=== PATIENT | male | born 1975 | race Caucasian/White ===

== ENCOUNTER 2019-12-31 09:50 | Emergency (ER) | payer MEDICAID, SELFPAY ==
--- NOTE | ~2019-12-31 | XR_ITS ---
EXAMINATION: XR ankle RT min 3V DATE: 12/31/2019 10:30 INDICATION: Right ankle pain and swelling. TECHNIQUE: 4 views of right ankle were obtained. COMPARISON: None. FINDINGS: Bone alignment is normal. No fracture. Joint spaces are well maintained. There are enthesop hytes at the posterior and plantar aspects of calcaneal tuberosity. IMPRESSION: 1. No fracture. Reviewed, dictated and finalized at location A. IMPRESSION: 1. No fracture.
[2019-12-31 10:00] VITALS: BP 145/103; PULSE 106; RESP 16; TEMP 36.4; O2SAT 97
--- NOTE | 2019-12-31 10:26 | ED.GENADULT ---
HPI - General Adult General Chief complaint: Extremity Problem,Nontraumatic Stated complaint: right ankle pain/no injury Time Seen by Provider: 12/31/19 10:08 Source: patient Mode of arrival: ambulatory Limitations: no limitations History of Present Illness HPI narrative: Patient is a 44-year-old male who presents to emergency department for atraumatic right ankle pain noting sharp stabbing pain of the ankle worse with activity and weightbearing patient denies injury or trauma. Patient denies similar occurrence patient notes that he had recently had lower extremity swelling secondary to amlodipine was taken off of it and advised to re-start his lisinopril which they had switched due to coughing. Patient denies any fever chills radicular symptoms paresthesias and is otherwise in the room in no distress upon arrival. [place] and has not taken anything for his symptoms Related Data Home Medications Medication Instructions Recorded Confirmed albuterol sulfate INHALATION 12/31/19 atorvastatin 12/31/19 hydrochlorothiazide 12/31/19 Allergies Allergy/AdvReac Type Severity Reaction Status Date / Time No Known Allergies Allergy Mild Verified 03/16/12 16:14 Review of Systems Review of Systems: All systems reviewed & are unremarkable except as noted in HPI and below PMFSH Past Medical History Medical History Hypertension Social History Social History (Updated 12/31/19 @ 10:28 by Puneet Grider PA-C) Smoking status: Never smoker Exam Narrative: Exam Narrative: GENERAL: Well-appearing, well-nourished, and in no acute distress. HEAD: Normocephalic, atraumatic. EYES: PERRLA and EOMI. ENT: Nares clear, no rhinorrhea or epistaxis. Mucous membranes moist. CHEST: Clear to auscultation. No respiratory distress. No wheezes rales or rhonchi HEART: Regular rate and rhythm. No murmur heard. Normal peripheral pulses. ABDOMEN: Soft, nontender, nondistended, EXTREMITIES: Tenderness around the right ankle joint with no deformity no erythema no swelling remainder of extremity nontender SKIN: Warm, dry, no rash. NEURO: No focal deficits. Alert and oriented x3. Neurovascularly intact. Strong DP and PT pulses in the right ankle and foot. No calf tenderness. Capillary refill less than 2 seconds PSYCH: Normal mood and affect. Course Course Emergency Course: Patient in the room aware of case findings treatment plan and diagnosis agreeing to follow-up primary care patient with likely gout as the etiology of his symptoms. Patient had improvement with anti-inflammatory and will be managed with anti-inflammatories on an outpatient basis Vital Signs Vital signs: Vital Signs Temperature 97.5 F L 12/31/19 10:00 Pulse Rate 106 H 12/31/19 10:00 Respiratory Rate 16 12/31/19 10:00 Blood Pressure 145/103 H 12/31/19 10:00 Pulse Oximetry 97 12/31/19 10:00 Temperature 97.5 F L 12/31/19 10:00 Pulse Rate 106 H 12/31/19 10:00 Respiratory Rate 16 12/31/19 10:00 Blood Pressure 145/103 H 12/31/19 10:00 Pulse Oximetry 97 12/31/19 10:00 Medical Decision Making MDM Narrative Medical decision making narrative: Patients injury or pain is consistent with musculoskeletal etiology. No signs of neurological or vascular compromise on exam. Compartments and tisues are soft without signs of compartment syndrome. Pain is felt appropriate for further evaluation on an outpatient basis. Patient's findings consistent with gout Vital Signs Vital Signs: Vital Signs Temperature 97.5 F L 12/31/19 10:00 Pulse Rate 106 H 12/31/19 10:00 Respiratory Rate 16 12/31/19 10:00 Blood Pressure 145/103 H 12/31/19 10:00 Pulse Oximetry 97 12/31/19 10:00 Temperature 97.5 F L 12/31/19 10:00 Pulse Rate 106 H 12/31/19 10:00 Respiratory Rate 16 12/31/19 10:00 Blood Pressure 145/103 H 12/31/19 10:00 Pulse Oximetry 97 12/31/19 10:
[2019-12-31] MEDS: KETOROLAC 30 MG/ML VIAL (*BKC) IV PUSH (10:53)
[2019-12-31 11:04] LABS: Basophils Absolute Auto 0.1 K/mm3 (0.0-0.1); Basophils Percent Auto 1.1 % (0.2-1.2); Eosinophils Absolute Auto 0.2 K/mm3 (0-0.3); Eosinophils Percent Auto 2.6 % (0-4.4); Hematocrit 40.8 % (42.0-52.0); Hemoglobin 14.1 g/dL (14.0-18.0); Immature Granulocyte Absolute 0.04 K/mm3 (0.00-0.031); Immature Granulocyte Percent A 0.5 % (0-0.5); Lymphocytes Absolute Auto 2.16 K/mm3 (0.9-3.2); Lymphocytes Percent Auto 29.3 % (18.3-44.2); Mean Corpuscular HGB Conc 34.6 g/dl (32-36); Mean Corpuscular Hemoglobin 29.7 pg (26-34); Mean Corpuscular Volume 85.9 fl (80-100); Mean Platelet Volume 10.9 fl (7.4-10.4); Monocytes Absolute Auto 0.5 K/mm3 (0.1-0.6); Monocytes Percent Auto 6.1 % (2.6-8.5); Neutrophils Absolute Auto 4.5 K/mm3 (1.3-6.7); Neutrophils Percent Auto 60.4 % (45.5-73.1); Platelet Count Result 317 k/mm3 (150-375); Red Blood Count 4.75 M/mm3 (4.6-6.20); Red Cell Distribution Width 12.8 % (11.5-14.5); White Blood Count 7.4 K/mm3 (4.5-10.0)
[2019-12-31 11:17] LABS: Anion Gap 10 mmol/L (8-16); Blood Urea Nitrogen 19 mg/dL (9-20); CRP < 0.5 mg/dL (<1.0); Calcium 9.3 mg/dL (8.4-10.2); Carbon Dioxide 28 mmol/L (22-30); Chloride 100 mmol/L (98-107); Estimated CRCL calculation 91 ml/min; Estimated Glomerular Filt Rate > 60; Glucose 159 mg/dL (75-110); Potassium 3.4 mmol/L (3.4-5.0); Sodium 138 mmol/L (137-145); Uric Acid 9.8 mg/dL (3.5-8.5)
[2019-12-31 11:30] LABS: Erythrocyte Sedimentation Rate 23 mm/hr (0-20)
[2019-12-31 12:05] VITALS: BP 152/85; PULSE 92; RESP 16; O2SAT 97
== END 2019-12-31 12:05 | disposition home or self-care (01) ==
PROVIDERS: Emergency Medicine Emergency Medical Services; Emergency Provider Emergency Medicine
DX: M25.571 Pain in right ankle and joints of right foot (principal); I10 Essential (primary) hypertension
CPT/HCPCS: 36415; 73610; 80048; 84550; 85025; 85652; 86140; 96374; 99284; J1885

== ENCOUNTER 2021-12-24 19:52 | Emergency (ER) | payer OTHER, SELFPAY ==
--- NOTE | ~2021-12-24 | XR_ITS ---
EXAM: XR knee LT min 4V DATE: 12/24/2021 20:28 HISTORY: left knee pain, swelling, hx gout . COMPARISON: None available. FINDINGS: Normal mineralization. No fracture or dislocation. No lytic or blastic lesion. Joint space s are maintained. No erosion or periosteal change. Soft tissues within normal limits. IMPRESSION: No acute osseous finding in the left knee. Reviewed, dictated and finalized at location K.
[2021-12-24 19:54] VITALS: BP 151/97; PULSE 83; RESP 16; TEMP 36.5; O2SAT 99
--- NOTE | 2021-12-24 20:55 | ED.EXTPRO ---
HPI - Extremity Problem General Chief complaint: Extremity Problem,Nontraumatic Stated complaint: left knee pain Time Seen by Provider: 12/24/21 20:18 Source: patient Mode of arrival: ambulatory Limitations: no limitations History of Present Illness HPI Narrative: This is a 46 year old male that presents to the ER for left knee pain noted today. Reports swelling to the area. Reports history of gout and that this pain feel similar. No recent injury or trauma. Denies fever or erythema. Related Data Home Medications Medication Instructions Recorded Confirmed albuterol sulfate 90 mcg/actuation inhalation 12/31/19 aerosol inhaler atorvastatin 80 mg tablet 12/31/19 hydrochlorothiazide 12.5 mg capsule 12/31/19 Allergies Allergy/AdvReac Type Severity Reaction Status Date / Time No Known Allergies Allergy Mild Verified 03/16/12 16:14 Review of Systems Review of Systems: CONSTITUTIONAL: Denies fever MUSCULOSKELETAL: Reports joint pain, and myalgia. NEUROLOGIC: Denies numbness All systems reviewed & are unremarkable except as noted in HPI and below PMFSH Past Medical History Medical History (Updated 12/24/21 @ 22:22 by Dominga Meza PA-C) Hypertension Social History Social History (Updated 12/31/19 @ 10:28 by Puneet Grider, PAJerryC) Smoking status: Never smoker Exam Narrative: GENERAL: Well-appearing, well-nourished, and in no acute distress. HEAD: Normocephalic, atraumatic. EYES: EOMI. EXTREMITIES: Normal range of motion. No edema, erythema or warmth. Normal DP pulse. Normal sensation SKIN: Warm, dry, no rash. NEURO: No focal deficits. Alert and oriented x3. PSYCH: Normal mood and affect Course Vital Signs Vital signs: Vital Signs Temperature 97.7 F 12/24/21 19:54 Pulse Rate 83 12/24/21 19:54 Respiratory Rate 16 12/24/21 19:54 Blood Pressure 151/97 H 12/24/21 19:54 Pulse Oximetry 99 12/24/21 19:54 Oxygen Delivery Room Air 12/24/21 19:54 Temperature 97.7 F 12/24/21 19:54 Pulse Rate 83 12/24/21 19:54 Respiratory Rate 16 12/24/21 19:54 Blood Pressure 151/97 H 12/24/21 19:54 Pulse Oximetry 99 12/24/21 19:54 Oxygen Delivery Room Air 12/24/21 19:54 MDM - Extremity (Nontraumatic) MDM Narrative Medical decision making narrative: Patient presents to the emergency department for left knee pain noted today. No recent injury or trauma. Patient is afebrile and nontoxic-appearing. He is neurovascularly intact. There is no erythema or warmth of the knee. CBC is without leukocytosis. Inflammatory markers are not elevated. His uric acid is a little elevated. Mild elevation in creatinine to 1.4. Patient has had similar occurrence in the past. Had relief with anti-inflammatories. Patient will be managed once again with anti-inflammatories. Instructed to have follow-up with his primary doctor. He was given warnings to return to the ER Lab Data Attestation: I reviewed the patient's lab results. Result diagrams: 12/24/21 21:11 12/24/21 21:11 Labs: Lab Results 12/24/21 12/24/21 Range/Units 21:11 21:11 WBC 6.3 (4.5-10.0) K/mm3 RBC 4.67 (4.6-6.20) M/mm3 Hgb 13.9 L (14.0-18.0) g/dL Hct 39.8 L (42.0-52.0) % MCV 85.2 (80-100) fl MCH 29.8 (26-34) pg MCHC 34.9 (32-36) g/dl RDW 12.1 (11.5-14.5) % Plt Count 386 H (150-375) k/mm3 MPV 10.7 H (7.4-10.4) fl Immature Gran % (Auto) 0.2 (0-0.5) % Neut % (Auto) 39.1 L (45.5-73.1) % Lymph % (Auto) 48.8 H (18.3-44.2) % [place] % (Auto) 7.9 (2.6-8.5) % Eos % (Auto) 2.9 (0-4.4) % Baso % (Auto) 1.1 (0.2-1.2) % Lymph # (Auto) 3.08 (0.9-3.2) K/mm3 [place] # (Auto) 0.5 (0.1-0.6) K/mm3 Eos # (Auto) 0.2 (0-0.3) K/mm3 Baso # (Auto) 0.1 (0.0-0.1) K/mm3 Abs Immat Gran (auto) 0.01 (0.00-0.031) K/mm3 Absolute Neuts (auto) 2.5 (1.3-6.7) K/mm3 Absolute Nucleated RBC 0.0 (0.0-0.012) K/mm3 Nucleated RBC % 0.
[2021-12-24 21:21] LABS: Basophils Absolute Auto 0.1 K/mm3 (0.0-0.1); Basophils Percent Auto 1.1 % (0.2-1.2); Eosinophils Absolute Auto 0.2 K/mm3 (0-0.3); Eosinophils Percent Auto 2.9 % (0-4.4); Hematocrit 39.8 % (42.0-52.0); Hemoglobin 13.9 g/dL (14.0-18.0); Immature Granulocyte Absolute 0.01 K/mm3 (0.00-0.031); Immature Granulocyte Percent A 0.2 % (0-0.5); Lymphocytes Absolute Auto 3.08 K/mm3 (0.9-3.2); Lymphocytes Percent Auto 48.8 % (18.3-44.2); Mean Corpuscular HGB Conc 34.9 g/dl (32-36); Mean Corpuscular Hemoglobin 29.8 pg (26-34); Mean Corpuscular Volume 85.2 fl (80-100); Mean Platelet Volume 10.7 fl (7.4-10.4); Monocytes Absolute Auto 0.5 K/mm3 (0.1-0.6); Monocytes Percent Auto 7.9 % (2.6-8.5); Neutrophils Absolute Auto 2.5 K/mm3 (1.3-6.7); Neutrophils Percent Auto 39.1 % (45.5-73.1); Platelet Count Result 386 k/mm3 (150-375); Red Blood Count 4.67 M/mm3 (4.6-6.20); Red Cell Distribution Width 12.1 % (11.5-14.5); White Blood Count 6.3 K/mm3 (4.5-10.0)
[2021-12-24 21:32] LABS: Anion Gap 14 mmol/L (8-16); Blood Urea Nitrogen 33 mg/dL (9-20); CRP < 0.5 mg/dL (<1.0); Calcium 10.1 mg/dL (8.4-10.2); Carbon Dioxide 25 mmol/L (22-30); Chloride 100 mmol/L (98-107); Estimated CRCL calculation 76 ml/min; Estimated Glomerular Filt Rate 55; Glucose 144 mg/dL (65-110); Potassium 3.7 mmol/L (3.4-5.0); Sodium 139 mmol/L (137-145); Uric Acid 9.7 mg/dL (3.5-8.5)
[2021-12-24] MEDS: INDOMETHACIN 25 MG CAPSULE PO (21:49)
[2021-12-24 22:02] LABS: Erythrocyte Sedimentation Rate 12 mm/hr (0-20)
[2021-12-24 22:35] VITALS: PULSE 94; RESP 18; O2SAT 99
== END 2021-12-24 22:36 | disposition home or self-care (01) ==
PROVIDERS: Physician Assistant; Emergency Provider Emergency Medicine
DX: M25.562 Pain in left knee (principal); E79.0 Hyperuricemia without signs of inflammatory arthritis and tophaceous disease; I10 Essential (primary) hypertension
CPT/HCPCS: 36415; 73564; 80048; 84550; 85025; 85652; 86140; 99283; A9270